=== PATIENT | female | born 1990 | race Caucasian/White ===

== ENCOUNTER 2023-02-25 13:42 | Emergency (ER) | payer OTHER ==
[2023-02-25] MEDS ORDERED: IBUPROFEN 200 MG TAB PO ONE (14:24)
[2023-02-25] MEDS ORDERED: ACETAMINOPHEN 500 MG TAB ONE (14:30)
--- NOTE | 2023-02-25 15:16 | EDPHYS ---
Physician Documentation [facility] Name: Rito Hernández Age: 32 yrs Sex: Female : 1990 Arrival Date: 02/25/2023 Time: 13:42 Bed DIS4 Private MD: ED Physician Sadi Castillo HPI: 02/25 14:35 This 32 yrs old Female presents to ER via Ambulatory with complaints of Sore Throat, ms3 Ear Pain. 14:35 32-year-old female with no past medical history presents for sore throat, right ear ms3 pain that has been ongoing for 2 days. Patient states the pain is 7/10. Patient states pain is worse with swallowing. Patient denies alleviating factors. Patient states she has taken Tylenol without relief. Historical: - Allergies: 14:00 Benadryl (Hives); hb - Home Meds: 14:00 None [Active]; hb - PMHx: 14:00 None; hb - PSHx: 14:00 None; hb - Immunization history:: Adult Immunizations up to date. - Social history:: Smoking status: Patient denies any tobacco usage or history of. ROS: 14:35 Constitutional: Negative for fever, and chills. Neck: Negative for injury, pain, and ms3 swelling, Cardiovascular: Negative for chest pain, and palpitations. Respiratory: Negative for shortness of breath, cough, wheezing, and pleuritic chest pain, Abdomen/GI: Negative for abdominal pain, nausea, vomiting, diarrhea, and constipation. 14:35 Skin: Negative for injury, rash, and discoloration. 14:35 ENT: Positive for sore throat. 14:35 All other systems are negative. Exam: 14:35 Constitutional: This is a well developed, well nourished patient who is awake, alert, ms3 and in no acute distress. Head/Face: Normocephalic, atraumatic. Chest/axilla: Normal chest wall appearance and motion. Nontender with no deformity. Cardiovascular: Regular rate and rhythm with a normal S1 and S2. No gallops, murmurs, or rubs. Normal PMI, no JVD. No pulse deficits. Respiratory: Lungs have equal breath sounds bilaterally, clear to auscultation and percussion. No rales, rhonchi or wheezes noted. No increased work of breathing, no retractions or nasal flaring. Abdomen/GI: Soft, non-tender, with normal bowel sounds. No distension or tympany. No guarding or rebound. No evidence of tenderness throughout. Skin: Warm, dry with normal turgor. Normal color with no rashes, no lesions, and no evidence of cellulitis. MS/ Extremity: Pulses equal, no cyanosis. Neurovascular intact. Full, normal range of motion. 14:35 ENT: Posterior pharynx: erythema, that is moderate. ms3 Vital Signs: 13:58 BP 127 / 76; Pulse 76; Resp 16; Temp 100.1(O); Pulse Ox 100% on R/A; Weight 64.86 kg; hb Height 5 ft. 5 in. ; Pain 4/10; 13:58 Body Mass Index 23.79 (64.86 kg, 165.1 cm) hb 13:58 Pain Scale: Adult hb MDM: 14:11 Patient medically screened. ms3 14:35 Differential diagnosis: Allergic rhinitis, upper respiratory infection, viral syndrome. ms3 15:28 Data reviewed: vital signs, nurses notes, lab test result(s), and as a result, I will ms3 discharge patient. I considered the following discharge prescriptions or medication management in the emergency department Medications were administered in the Emergency Department. See MAR. Counseling: I had a detailed discussion with the patient and/or guardian regarding: the historical points, exam findings, and any diagnostic results supporting the discharge/admit diagnosis, lab results, the need for outpatient follow up, to return to the emergency department if symptoms worsen or persist or if there are any questions or concerns that arise at home. Response to treatment: the patient's symptoms have mildly improved after treatment, and as a result, I will discharge patient. Special discussion: I discussed with the patient/guardian in detail that at this point there is no indication for admission to the hospital. It is understood, however, that if the symptoms persist or worsen the patient needs to return immediately for re-evaluation. ED course: On reevaluation patient is alert and orient x4, no apparent distress, nontoxic-appearing, ambulatory number department, tolerating p.o. Discussed positive rapid strep test with patient. Patient given prescription for amoxicillin 500 mg twice daily for 10 days. Patient to follow-up with Dr. Holguin in 2 to 3 days. Patient understands and agrees with plan. All questions were answered. Return precautions discussed include worsening symptoms, or any other concerns. 02/25 14:12 Order name: Strep; Complete Time: 15:14 ms3 02/25 14:20 Order name: Flu; Complete Time: 15:14 ms3 02/25 14:20 Order name: COVID-19 SARS RT PCR; Complete Time: 15:14 ms3 Administered Medications: 14:22 Not Given (Physician Discretion): Ibuprofen PO 600 mg PO once kc6 14:27 Drug: Acetaminophen PO 1000 mg Route: PO; kc6 15:47 Follow up: Response: No adverse reaction kc6 Disposition Summary: 02/25/23 15:15 Discharge Ordered Location: Home ms3 Condition: Stable ms3 Diagnosis - Streptococcal pharyngitis ms3 Followup: ms3 - With: Can Holguin DO - When: 2 - 3 days - Reason: Recheck today's complaints Discharge Instructions: - Discharge Summary Sheet ms3 - Strep Throat, Adult ms3 Forms: - Medication Reconciliation Form ms3 - Thank You Letter ms3 - Antibiotic Education ms3 - Prescription Opioid Use ms3 Prescriptions: - Amoxicillin 500 mg Oral Capsule - take 1 capsule by ORAL route every 12 hours for 10 days; 20 tablet; Refills: 0, ms3 Product Selection Permitted Signatures: Dispatcher [employer] Josefina Mendoza RN RN Sadi Rivera DO DO ms3 Daily Pope RN RN kc6 Corrections: (The following items were deleted from the chart) 14:00 14:00 Allergies: No Known Allergies; christopher
--- NOTE | 2023-02-25 15:16 | ER ---
Nurse's Notes [facility] Name: Rito Hernández Age: 32 yrs Sex: Female : 1990 Arrival Date: 02/25/2023 Time: 13:42 Bed DIS4 Private MD: Diagnosis: Streptococcal pharyngitis Presentation: 02/25 13:58 Chief complaint: Sore throat, pain with swallowing, and right ear pain x 2 days. hb Coronavirus screen: At this time, the client does not indicate any symptoms associated with coronavirus-19. Ebola Screen: No symptoms or risks identified at this time. Initial Sepsis Screen: Does the patient meet any 2 criteria? No. Patient's initial sepsis screen is negative. Does the patient have a suspected source of infection? No. Patient's initial sepsis screen is negative. Risk Assessment: Do you want to hurt yourself or someone else? Patient reports no desire to harm self or others. Onset of symptoms was February 24, 2023. 13:58 Method Of Arrival: Ambulatory 13:58 Acuity: ZACHARY 4 hb Triage Assessment: 15:47 General: Appears. kc6 Historical: - Allergies: 14:00 Benadryl (Hives); hb - Home Meds: 14:00 None [Active]; hb - PMHx: 14:00 None; hb - PSHx: 14:00 None; hb - Immunization history:: Adult Immunizations up to date. - Social history:: Smoking status: Patient denies any tobacco usage or history of. Screenin:29 [facility] ED Fall Risk Assessment (Adult) History of falling in the last 3 months, kc6 including since admission No falls in past 3 months (0 pts) Confusion or Disorientation No (0 pts) Intoxicated or Sedated No (0 pts) Impaired Gait No (0 pts) Mobility Assist Device Used No (0 pt) Altered Elimination No (0 pt) Score/Fall Risk Level 0 - 2 = Low Risk Oriented to surroundings, Maintained a safe environment, Educated pt \T\ family on fall prevention, incl call for assistance when getting out of bed, Assessed \T\ reinforced patient's understanding of fall precautions, Hourly rounding (assess needs \T\ fall precautionary measures) done. Abuse screen: Denies threats or abuse. Denies injuries from another. Nutritional screening: No deficits noted. Tuberculosis screening: No symptoms or risk factors identified. Assessment: 14:29 Reassessment: No changes from previously documented assessment. Patient and/or family kc6 updated on plan of care and expected duration. Pain level reassessed. Patient is alert, oriented x 3, equal unlabored respirations, skin warm/dry/pink. Pain: Complains of pain in right ear, throat. Respiratory: Airway is patent Trachea midline Respiratory effort is even, unlabored, Respiratory pattern is regular, symmetrical, Breath sounds are clear bilaterally. EENT: Throat is reddened bilaterally with gag reflex present. 15:29 Reassessment: Patient appears in no apparent distress at this time. No changes from kc6 previously documented assessment. Patient and/or family updated on plan of care and expected duration. Pain level reassessed. Patient is alert, oriented x 3, equal unlabored respirations, skin warm/dry/pink. Vital Signs: 13:58 BP 127 / 76; Pulse 76; Resp 16; Temp 100.1(O); Pulse Ox 100% on R/A; Weight 64.86 kg; hb Height 5 ft. 5 in. ; Pain 4/10; 13:58 Body Mass Index 23.79 (64.86 kg, 165.1 cm) hb 13:58 Pain Scale: Adult hb ED Course: 13:46 Patient arrived in ED. rg4 13:55 Sadi Castillo DO is Attending Physician. ms3 14:00 Triage completed. hb 14:00 Arm band placed on. hb 14:10 Daily Pope, RN is Primary Nurse. kc6 14:27 COVID-19 SARS RT PCR Sent. kc6 14:27 Flu Sent. kc6 14:29 Patient has correct armband on for positive identification. Bed in low position. Call kc6 light in reach. Side rails up X 1. 15:15 Can Holguin DO is Referral Physician. ms3 15:47 No provider procedures requiring assistance completed. Patient did not have IV access kc6 during this emergency room visit. Administered Medications: 14:22 Not Given (Physician Discretion): Ibuprofen PO 600 mg PO once kc6 14:27 Drug: Acetaminophen PO 1000 mg Route: PO; kc6 15:47 Follow up: Response: No adverse reaction kc6 Medication: 15:48 VIS not applicable for this client. kc6 Outcome: 15:15 Discharge ordered by . ms3 15:47 Discharged to home ambulatory. kc6 15:47 Condition: improved 15:47 Discharge instructions given to patient, Instructed on discharge instructions, follow up and referral plans. medication usage, Demonstrated understanding of instructions, follow-up care, medications, Prescriptions given X 1. 15:48 Patient left the ED. kc6 Signatures: Josefina Lopez, RN RN Vandana Bansal rg4 Sadi Castillo DO DO ms3 Daily Pope RN RN kc6 Corrections: (The following items were deleted from the chart) 14:00 14:00 Allergies: No Known Allergies; hb hb 14:13 13:58 BP 127 / 76; Pulse 76bpm; Resp 100bpm; Pulse Ox 100% RA; Temp 100.1F Oral; 64.86 hb kg; Height 5 ft. 5 in.; BMI: 23.8; Pain 4/10, Adult; hb
[2023-02-25 15:52] VITALS: BP 127/76; TEMP 100.1; O2SAT 100
== END 2023-02-25 15:48 | disposition home or self-care (01) ==
LOC: ER 13:42
DX: J02.0 Streptococcal pharyngitis (principal); H92.01 Otalgia, right ear; Z20.822 Contact with and (suspected) exposure to COVID-19; Z88.8 Allergy status to other drugs, medicaments and biological substances
CPT/HCPCS: 87081; 87635; 87804; 99283

== ENCOUNTER 2023-06-05 13:52 | Emergency (ER) | payer OTHER ==
--- OUTSIDE RECORDS SUMMARY | 2023-06-05 13:54 | XMS REPORT | Continuity of Care Document ---
:1990 Author Organization [facility] t Address [address] [place] [address] Care Team Providers Name Role Phone Vanesa Batista CNM Primary Care Physician NADEEN BLANK Attending Clinician Unavailable NADEEN BLANK Attending Clinician Unavailable Lab, Ang - Db Attending Clinician Unavailable Doctor Unassigned, [place] Attending Clinician Unavailable Payers Payer Name Policy Type Policy Number Effective Date Expiration Date S [facility] [employer] [id number] 2022 00:00:00 Problems Condition Condition Condition Status Onset Resolution Last Treating Co mments Source Name Details Category Date Date Treatment Clinician Date Normal Normal Disease Active Univers , , 8-24 [place] [facility] History of History of Disease Active U nivers 8-24 [place] 00 [facility] High-risk High-risk Disease Active Uni vers 8-24 [place] trimester 00 [facility] Allergies, Adverse Reactions, Alerts Allergy Allergy Status Severity Reaction(s) Onset Inactive Treating Comm ents Source Name Type Date Date Clinician NO KNOWN Drug Active Univers ALLERGIE Class ity of S [facility] Social History Social Habit Start Date Stop Date Quantity Comments Source ASSERTION 2023-01-17 University 00:00:00 [facility] Gender identity [facility]it y of [facility] Sexual orientation Univer sity [facility] Tobacco use and 2023-05-14 2023-05-14 Smokeless Universit y of exposure 00:00:00 00:00:00 tobacco non-user [facility] dical Branch Alcohol intake 2023-05-14 2023-05-14 Lifetime University of 00:00:00 00:00:00 non-drinker Formerly [facility] (finding) [place] History of Social 2023-05-14 2023-05-14 Univers ity of function 00:00:00 00:00:00 [facility] Sex Assigned At [birth year] Universit y of 00:00:00 00:00:00 [facility] Smoking Status Start Date Stop Date Source Tobacco smoking consumption Univ [facility] unknown [place] Never smoked tobacco [facility] Medications This patient has no known medications. Vital Signs Vital Name Observation Time Observation Value Comments Source Systolic blood 2023-05-14 15:20:00 111 mm[Hg] Univer sity pressure [facility] Diastolic blood 2023-05-14 15:20:00 71 mm[Hg] [facility] 2023-05-14 15:20:00 82 /min [facility] Body temperature 2023-05-14 15:20:00 36.44 Dodie [facility] Respiratory rate 2023-05-14 15:20:00 16 /min [facility] Body height 2023-05-14 15:20:00 165.1 cm [facility] Body weight 2023-05-14 15:20:00 66.225 kg [facility] BMI 2023-05-14 15:20:00 24.30 kg/m2 [facility] Procedures Procedure Date / Time Performed Performing Clinician [facility] e >14 WEEKS US 2023-05-14 15:39:47 Nadeen Blank [facility] ASSIGNMENT OF BENEFITS 2023-05-14 14:53:38 Doctor Unassigned, No [facility] POCT TEST 2023-05-14 00:00:00 [facility] W/O 2023-05-14 00:00:00 [facility] [place] SPECIFIC GRAVITY [facility] Encounters Start End Encounter Admission Attending Care Care Encounter Source Date/Time Date/Time Type Type Clinicians Facility Department ID 2023-06-11 2023-06-11 Outpatient R NADEEN BLANK [facility] U [facility] [id number] [facility] 11:30:00 11:30:00 TENZINMEHTAANANYA SOTELOSOL ity of [facility] 2023-06-02 2023-06-02 [facility] [id number] [facility] 00:00:00 00:00:00 (Out) sRhysl TU [id number] it[id number] PROF[place] [phone] [facility] [address] [facility] 2023-05-27 2023-05-27 [facility] [id number] Univers 00:00:00 00:00:00 sNadeenMORA [id number] it[id number] [id number] [facility] [address] [facility] 2023-05-19 2023-05-19 Outpatient R RHYS BLANKL [facility] [id number] [facility] 08:30:00 10:18:37 HRYS BLANKL ity of [facility] 2023-05-19 2023-05-19 [employer] Lab, Ang - Reynaldo [facility] [id number] [facility] 08:30:00 10:18:37 [facility] [id number] ity of [place] [id number] Star as LICHA?BLEA [phone] [address] MEDICAL OFFICE BUILDING 2023-05-14 2023-05-14 Initial [facility] [place] [id number] [facility] 10:00:00 10:49:05 sNadeen RADHA [id number] ity of Visit [facility] [id number] [facility] [id number] [facility] [address] 2023-05-14 2023-05-14 Outpatient R ANANYA BLANKSOL [facility] U [facility] [id number] Univers 10:00:00 10:49:05 [facility] 2023-05-14 2023-05-14 Orders Doctor MARIANO [id number] Univers 00:00:00 00:00:00 Only Unassigned, MARCELO [id number] ity of [place] [facility] [id number] Star as [phone] [facility] [address] 2023-05-07 2023-05-07 Outpatient R NADEEN BLANK [facility] U [facility] [id number] Univers 10:00:00 10:00:00 [facility] Results Test Description Test Time Test Comments Results Result Comments Source POCT URINALYSIS W/O SPECIFIC GRAVITY 2023-05-14 15:22:00 Test Item Value Reference Range Interpretation Comme nts POCT PH U (test code = 3254) n/a 5-8 POCT U LEUK EST (test code = 3263) n/a Negative - Negative POCT U NIT (test code = 3262) n/a Negative - Negative POCT U PROT (test code = 3259) negative Negative - Negative POCT U GLU (test code = 3256) negative Negative - Negative POCT U KETONE (test code = 3258) n/a Negative - Negative POCT U BLD (test code = 3257) n/a Negative - Negative [facility] [id number] 15:22:00 Test Item Value Reference Range Interpretation Comments POCT PREG (test code = 1605) Positive On board controls acceptable with C Yes Line (test code = 3574) POCT PREG LOT # (test code = 3575) POCT PREG TEST DATE (test code = 3576) [facility] W/O SPECIFIC [id number] 15:22:00 Test Item Value Reference Range Interpretation Comments POCT PH U (test code = 3254) n/a 5-8 POCT U LEUK EST (test code = n/a Negative - Negative 3263) POCT U NIT (test code = 3262) n/a Negative - Negative POCT U PROT (test code = 3259) negative Negative - Negative POCT U GLU (test code = 3256) negative Negative - Negative POCT U KETONE (test code = 3258) n/a Negative - Negative POCT U BLD (test code = 3257) n/a Negative - Negative [facility] [id number] 15:22:00 Test Item Value Reference Range Interpretation Comments POCT PREG (test code = 1605) Positive On board controls acceptable with C Yes Line (test code = 3574) POCT PREG LOT # (test code = 3575) POCT PREG TEST DATE (test code = 3576) [facility] Notes Date/Time Note Provider Source 2023-05-27 Formatting of this note might be differe nt from the original. Cici Avilez [facility] 09:19:00-00:00 Received Panorama results vi a fax. Stamped and will be scanned/uploaded into pt's chart. CECILIA AVILEZ RN 05/27/2023 9:20 AM 2023-05-19 [facility] 08:30:00-00:00 Given 50gm glucola without complications. Finish ed at 0910. Electronically signed by Steven Coyle at 9:11 AM CDT 2023-05-19 Formatting of this note is different from the or iginal. [facility] 08:30:00-00:00 Images from the original note were not included. Venipuncture collection perf ormed by clean technique on the right anticubitus. Total of 1 attempts were made. Slight pressure and a bandage/dressing were applied to the site(s). The patient experienced no complications. The follow ing specimens were processed according to instructions and sent to [facility] laboratories per lab order on 05/19/2023 : LT BLUE SST 6 RED 1 LAV 3 PPT DK GREEN (LiHep) DK GREEN (SodH) ANDRADE DK BLUE (K2) DK BLUE (S) ACD Blood Culture NIPT/NTD Patient has been identified by and name and was provided with cup, antiseptic towelette, and clean catch instructions. 2 urine specimen(s) sent. Unpreserved 1 Urine Culture 1 Aptima tube Other urine Electronically signed by Steven Coyle at 10:23 AM CDT
--- NOTE | 2023-06-05 14:22 | ER ---
Nurse's Notes [facility] Name: Rito Hernández Age: 33 yrs Sex: Female : 1990 Arrival Date: 06/05/2023 Time: 13:52 Bed IW2 Private MD: Diagnosis: Herpes Labialis Presentation: 06/05 14:01 Chief complaint: Sore on upper lip and lip swelling x 4 days. Pt is 22 weeks , hb , JAYCEE 10/08/23. Coronavirus screen: At this time, the client does not indicate any symptoms associated with coronavirus-19. Ebola Screen: No symptoms or risks identified at this time. Initial Sepsis Screen: Does the patient meet any 2 criteria? No. Patient's initial sepsis screen is negative. Does the patient have a suspected source of infection? No. Patient's initial sepsis screen is negative. Risk Assessment: Do you want to hurt yourself or someone else? Patient reports no desire to harm self or others. Onset of symptoms was June 01, 2023. 14:01 Method Of Arrival: Ambulatory hb 14:01 Acuity: ZACHARY 4 hb Triage Assessment: 14:13 General: Appears in no apparent distress. Behavior is calm, cooperative. Pain: Pain hb currently is 3 out of 10 on a pain scale. EENT: Reports upper lip swelling, sores to upper lip. Neuro: Level of Consciousness is awake, alert, obeys commands, Oriented to person, place, time, situation. Cardiovascular: Patient's skin is warm and dry. Respiratory: Respiratory effort is even, unlabored, Respiratory pattern is regular, symmetrical. 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 - Social history:: Smoking status: Patient denies any tobacco usage or history of. Screenin:13 [facility] ED Fall Risk Assessment (Adult) Score/Fall Risk Level 0 - 2 = Low Risk hb Oriented to surroundings, Maintained a safe environment. Abuse screen: Denies threats or abuse. Denies injuries from another. Nutritional screening: No deficits noted. Tuberculosis screening: No symptoms or risk factors identified. Assessment: 14:13 General: See triage assessment . hb Vital Signs: 14:01 BP 111 / 70; Pulse 69; Resp 16; Temp 99.2(O); Pulse Ox 100% on R/A; Weight 66.68 kg; hb Height 5 ft. 5 in. ; Pain 3/10; 14:01 Body Mass Index 24.46 (66.68 kg, 165.1 cm) hb 14:01 Pain Scale: Adult hb ED Course: 13:56 Patient arrived in ED. im 14:02 Sadi Castillo DO is Attending Physician. ms3 14:05 Triage completed. hb 14:05 Arm band placed on. hb 14:13 Patient has correct armband on for positive identification. Provided Education on: . hb 14:13 No provider procedures requiring assistance completed. Patient did not have IV access hb during this emergency room visit. Administered Medications: No medications were administered Medication: 14:13 VIS not applicable for this client. hb Outcome: 14:21 Discharge ordered by . ms3 14:27 Patient left the ED. hb Signatures: Josefina Lopez, RN RN hb Sadi Castillo DO DO ms3 Mckenzie Beckford im
--- NOTE | 2023-06-05 14:22 | EDPHYS ---
Physician Documentation [facility] Name: Rito Hernández Age: 33 yrs Sex: Female : 1990 Arrival Date: 06/05/2023 Time: 13:52 Bed IW2 Private MD: ED Physician Sadi Castillo HPI: 06/05 14:22 This 33 yrs old Female presents to ER via Ambulatory with complaints of Lips Swelling. ms3 14:22 33-year-old female with no past medical history at 22 weeks gestation presents for cold ms3 sores that been ongoing for 3 days. Patient states a couple days ago she popped down. Patient states her discomfort is a 3/10. Patient denies alleviating or inciting factors. Patient states she is -1-1-5. Patient denies fevers, chills, nausea, vomiting. 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 - Social history:: Smoking status: Patient denies any tobacco usage or history of. ROS: 14:22 Constitutional: Negative for fever, and chills. ms3 14:22 Cardiovascular: Negative for chest pain, and palpitations. Respiratory: Negative for shortness of breath, cough, wheezing, and pleuritic chest pain, Abdomen/GI: Negative for abdominal pain, nausea, vomiting, diarrhea, and constipation, MS/Extremity: Negative for injury and deformity, Skin: Negative for injury, rash, and discoloration. 14:22 ENT: Positive for Lip swelling. 14:22 All other systems are negative. Exam: 14:22 Constitutional: This is a well developed, well nourished patient who is awake, alert, ms3 and in no acute distress. Head/Face: Normocephalic, atraumatic. Chest/axilla: Normal chest wall appearance and motion. Nontender with no deformity. Cardiovascular: Regular rate and rhythm with a normal S1 and S2. No gallops, murmurs, or rubs. Normal PMI, no JVD. No pulse deficits. Respiratory: Lungs have equal breath sounds bilaterally, clear to auscultation and percussion. No rales, rhonchi or wheezes noted. No increased work of breathing, no retractions or nasal flaring. Abdomen/GI: Soft, non-tender, with normal bowel sounds. No distension or tympany. No guarding or rebound. No evidence of tenderness throughout. Skin: Warm, dry with normal turgor. Normal color with no rashes, no lesions, and no evidence of cellulitis. MS/ Extremity: Pulses equal, no cyanosis. Neurovascular intact. Full, normal range of motion. 14:22 ENT: Mouth: Lips: Blistering of upper lip with swelling. Vital Signs: 14:01 BP 111 / 70; Pulse 69; Resp 16; Temp 99.2(O); Pulse Ox 100% on R/A; Weight 66.68 kg; hb Height 5 ft. 5 in. ; Pain 3/10; 14:01 Body Mass Index 24.46 (66.68 kg, 165.1 cm) hb 14:01 Pain Scale: Adult hb MDM: 14:17 Patient medically screened. ms3 14:22 Differential diagnosis: Herpes labialis. Data reviewed: vital signs, nurses notes, and ms3 as a result, I will discharge patient. I considered the following discharge prescriptions or medication management in the emergency department Rx given. Counseling: I had a detailed discussion with the patient and/or guardian regarding the historical points, exam findings, and any diagnostic results supporting the discharge/admit diagnosis, the need for outpatient follow up, to return to the emergency department if symptoms worsen or persist or if there are any questions or concerns that arise at home. Special discussion: I discussed with the patient/guardian in detail that at this point there is no indication for admission to the hospital. It is understood, however, that if the symptoms persist or worsen the patient needs to return immediately for re-evaluation. Administered Medications: No medications were administered Disposition Summary: 06/05/23 14:21 Discharge Ordered Location: Home ms3 Condition: Stable ms3 Diagnosis - Herpes Labialis ms3 Followup: ms3 - With: Private Physician - When: 2 - 3 days - Reason: Recheck today's complaints Discharge Instructions: - Discharge Summary Sheet ms3 - Cold Sore, [id number] ms3 Forms: - Medication Reconciliation Form ms3 - Thank You Letter ms3 - Antibiotic Education ms3 - Prescription Opioid Use ms3 - Patient Portal Instructions ms3 - Leadership Thank You Letter ms3 Prescriptions: - valacyclovir 1 gram Oral tablet - take 2 tablet by ORAL route 2 times per day for 1 day; 4 tablet; Refills: 0, ms3 Product Selection Permitted Signatures: Josefina Lopez, RN RN Sadi Rivera DO DO ms3
[2023-06-05 15:13] VITALS: BP 111/70; TEMP 99.2; O2SAT 100
== END 2023-06-05 14:27 | disposition home or self-care (01) ==
LOC: ER 13:52
DX: O98.512 Other viral diseases complicating pregnancy, second trimester (principal); B00.1 Herpesviral vesicular dermatitis; Z3A.22 22 weeks gestation of pregnancy; Z88.8 Allergy status to other drugs, medicaments and biological substances
CPT/HCPCS: 99281